=== PATIENT | male | born 1980 | race Caucasian/White ===

== ENCOUNTER 2022-06-26 11:08 | Outpatient (CLI) | payer OTHER, SELFPAY | END 2022-06-26 11:09 | disposition home or self-care (01) | PROVIDERS: PCP Physician Assistant Medical; Visit Provider Physician Assistant Medical | DX: Z00.00 Encounter for general adult medical examination without abnormal findings (principal); G47.9 Sleep disorder, unspecified; Z13.6 Encounter for screening for cardiovascular disorders; Z13.29 Encounter for screening for other suspected endocrine disorder | CPT/HCPCS: 80053; 80061; 84443 ==

== ENCOUNTER 2023-08-18 07:41 | Outpatient (CLI) | payer OTHER, SELFPAY | END 2023-08-18 07:42 | disposition home or self-care (01) | PROVIDERS: PCP Physician Assistant Medical; Visit Provider Physician Assistant Medical | DX: I10 Essential (primary) hypertension (principal); R53.83 Other fatigue; F52.0 Hypoactive sexual desire disorder; G47.9 Sleep disorder, unspecified; Z13.220 Encounter for screening for lipoid disorders; Z13.21 Encounter for screening for nutritional disorder | CPT/HCPCS: 80053; 80061; 82306; 82607; 82728; 84403 ==

== ENCOUNTER 2023-09-13 19:37 | Outpatient (CLI) | payer OTHER, SELFPAY ==
--- NOTE | 2023-09-21 12:23 | W.PM.SLEEP ---
Sleep Study Details Details Interpreting Provider: Tania Loya Date of Sleep Study: 09/13/23 Sleep Study Details: STUDY TYPE:? Home unattended ? BMI:? 41.1 ORDERING PROVIDER:? Jamila INDICATION:? Concern about sleep apnea ? SLEEP SUMMARY:? 426 minutes monitored RESPIRATORY SUMMARY:? AHI 31 Low oxygen 81 3.5% of study oxygen below 90% Snoring 94.6% PERIODIC LIMB MOVEMENTS OF SLEEP:? Not recorded CARDIAC:? Range 51-107, mean 67.2 IMPRESSION:? Severe obstructive sleep apnea RECOMMENDATION: Treatment options include CPAP and possibly a dental appliance. Weight loss is also recommended.
== END 2023-09-13 19:38 | disposition home or self-care (01) ==
PROVIDERS: PCP Physician Assistant Medical; Visit Provider Otolaryngology
DX: G47.33 Obstructive sleep apnea (adult) (pediatric) (principal)
CPT/HCPCS: 95806

== ENCOUNTER 2023-10-15 13:02 | Outpatient (CLI) | payer OTHER, SELFPAY | END 2023-10-15 13:03 | disposition home or self-care (01) | LOC: NFLDREF 10-18 08:37 | PROVIDERS: PCP Physician Assistant Medical; Referring Provider Physician Assistant Medical; Visit Provider Physician Assistant Medical | DX: I10 Essential (primary) hypertension (principal) | CPT/HCPCS: 80048 ==

== ENCOUNTER 2023-11-19 09:30 | Outpatient (CLI) | payer OTHER, SELFPAY | END 2023-11-19 09:31 | disposition home or self-care (01) | LOC: NFLDREF 11-25 05:51 | PROVIDERS: PCP Physician Assistant Medical; Referring Provider Physician Assistant Medical; Visit Provider Physician Assistant Medical | DX: R79.89 Other specified abnormal findings of blood chemistry (principal) | CPT/HCPCS: 82306; 84403 ==

== ENCOUNTER 2024-03-10 08:47 | Outpatient (CLI) | payer OTHER, SELFPAY | END 2024-03-10 08:48 | disposition home or self-care (01) | LOC: NFLDREF 03-15 23:26 | PROVIDERS: PCP Physician Assistant Medical; Referring Provider Physician Assistant Medical; Visit Provider Physician Assistant Medical | DX: E29.1 Testicular hypofunction (principal); R79.89 Other specified abnormal findings of blood chemistry | CPT/HCPCS: 84403 ==

== ENCOUNTER 2024-06-30 08:58 | Outpatient (CLI) | payer OTHER, SELFPAY | END 2024-06-30 08:59 | disposition home or self-care (01) | LOC: NFLDREF 07-04 17:15 | PROVIDERS: PCP Physician Assistant Medical; Referring Provider Physician Assistant Medical; Visit Provider Physician Assistant Medical | DX: R79.89 Other specified abnormal findings of blood chemistry (principal) | CPT/HCPCS: 84403 ==

== ENCOUNTER 2024-08-24 09:15 | Outpatient (CLI) | payer OTHER, SELFPAY | END 2024-08-24 09:16 | disposition home or self-care (01) | LOC: NFLDREF 08-25 00:27 | PROVIDERS: PCP Physician Assistant Medical; Referring Provider Physician Assistant Medical; Visit Provider Physician Assistant Medical | DX: R79.89 Other specified abnormal findings of blood chemistry (principal); I10 Essential (primary) hypertension; E29.1 Testicular hypofunction; Z13.29 Encounter for screening for other suspected endocrine disorder | CPT/HCPCS: 80053; 80061; 82306; 84403; 84443 ==

== ENCOUNTER 2025-03-07 07:46 | Outpatient (CLI) | payer OTHER, SELFPAY ==
--- NOTE | 2025-03-07 08:00 | CRLHL7_ITS ---
For Patients: As a result of the Century Cures Act, medical imaging exams and procedure reports are released immediately into your electronic medical record. You may view this report before your referring provider. If you have questions, please contact your health care provider. INDICATION: LEFT TESTICLE PAIN COMPARISON: none TECHNIQUE: Harry scale imaging was performed of the scrotum. In addition color Doppler and spectral Doppler analysis was performed of the testes. FINDINGS: The testes demonstrate normal arterial and venous blood flow on color Doppler and spectral Doppler analysis. Bilateral testicular microlithiasis. No testicular mass. The right testis measures 4.0 x 1.9 x 2.8 cm in size and the left testis measures 4.4 x 1.8 x 2.7 cm. The epididymis appears normal bilaterally. There is no evidence of a hydrocele or varicocele. IMPRESSION: Bilateral testicular microlithiasis. No evidence of acute inflammation or testicular mass. No varicocele. Dictated by Eliseo Posey MD @ 03/11/2025 1:00:55 PM (Electronically Signed)
== END 2025-03-07 07:47 | disposition home or self-care (01) ==
LOC: US 07:46
PROVIDERS: PCP Physician Assistant Medical; Visit Provider Physician Assistant Medical
DX: N50.812 Left testicular pain (principal); N50.89 Other specified disorders of the male genital organs
CPT/HCPCS: 76870; 93976